=== PATIENT | male | born 1985 | race African-American/Black ===

== ENCOUNTER 2022-04-25 16:51 | Emergency (ER) | payer SELFPAY ==
[~2022-04-25] VITALS: Ht 182.9 cm; Wt 79.4 kg
[2022-04-25 19:45] VITALS: BP 122/87
== END 2022-04-25 20:20 | disposition home or self-care (01) ==
LOC: ER 16:51
DX: T67.9XXA Effect of heat and light, unspecified, initial encounter (principal); M79.10 Myalgia, unspecified site; X58.XXXA Exposure to other specified factors, initial encounter